=== PATIENT | female | born 1960 | race Caucasian/White ===

== ENCOUNTER 2016-12-29 19:29 | Emergency (ER) | payer OTHER ==
[2016-12-29 19:32] VITALS: BP 123/86
== END 2016-12-29 20:13 | disposition home or self-care (01) ==
LOC: ED 19:29
DX: S01.81XD Laceration without foreign body of other part of head, subsequent encounter (principal); X58.XXXD Exposure to other specified factors, subsequent encounter; Y92.89 Other specified places as the place of occurrence of the external cause; Y99.8 Other external cause status

== ENCOUNTER 2017-10-02 10:54 | Emergency (ER) | payer SELFPAY ==
[~2017-10-02] VITALS: Ht 162.6 cm; Wt 47.2 kg
[2017-10-02 11:14] VITALS: Ht 162.6 cm; Wt 47.2 kg
[2017-10-02 12:40] VITALS: BP 144/63
== END 2017-10-02 12:40 | disposition home or self-care (01) ==
LOC: ED 10:54
DX: N39.0 Urinary tract infection, site not specified (principal); I10 Essential (primary) hypertension; E11.9 Type 2 diabetes mellitus without complications; J45.909 Unspecified asthma, uncomplicated; Z90.710 Acquired absence of both cervix and uterus

== ENCOUNTER 2018-03-06 11:08 | Emergency (ER) | payer MEDICAID ==
[~2018-03-06] VITALS: Ht 162.6 cm; Wt 49.4 kg
[2018-03-06 11:17] VITALS: Ht 162.6 cm; Wt 49.4 kg
[2018-03-06 13:25] VITALS: BP 139/93
== END 2018-03-06 13:34 | disposition home or self-care (01) ==
LOC: ED 11:08
DX: S62.102A Fracture of unspecified carpal bone, left wrist, initial encounter for closed fracture (principal); Z90.710 Acquired absence of both cervix and uterus; W19.XXXA Unspecified fall, initial encounter; Y93.89 Activity, other specified; Y92.89 Other specified places as the place of occurrence of the external cause; Y99.8 Other external cause status
CPT/HCPCS: A4570

== ENCOUNTER 2018-03-22 17:54 | Emergency (ER) | payer MEDICAID ==
[~2018-03-22] VITALS: Ht 162.6 cm; Wt 63.5 kg
[2018-03-22 18:00] VITALS: Ht 162.6 cm; Wt 63.5 kg
[2018-03-22 19:46] VITALS: BP 144/96
== END 2018-03-22 19:40 | disposition left against medical advice (07) ==
LOC: ED 17:54
DX: S52.502A Unspecified fracture of the lower end of left radius, initial encounter for closed fracture (principal); Z90.710 Acquired absence of both cervix and uterus; X58.XXXA Exposure to other specified factors, initial encounter; Y93.89 Activity, other specified; Y92.89 Other specified places as the place of occurrence of the external cause; Y99.8 Other external cause status
CPT/HCPCS: Q0092

== ENCOUNTER 2018-07-23 11:49 | Emergency (ER) | payer OTHER ==
[~2018-07-23] VITALS: Ht 160 cm; Wt 54.4 kg
[2018-07-23 11:51] VITALS: BP 136/68; Ht 160 cm; Wt 54.4 kg
== END 2018-07-23 12:42 | disposition left against medical advice (07) ==
LOC: ED
DX: Z53.21 Procedure and treatment not carried out due to patient leaving prior to being seen by health care provider (principal)

== ENCOUNTER 2018-12-17 18:52 | Emergency (ER) | payer OTHER ==
[~2018-12-17] VITALS: Ht 160 cm; Wt 48.5 kg
[2018-12-17 19:39] VITALS: Ht 160 cm; Wt 48.5 kg
[2018-12-17 21:02] LABS: BASOPHIL % 1.1 % (0-2); PLATELET COUNT 386 x10^3mcL (130-400)
[2018-12-17 21:03] LABS: RED CELL DISTRIBUTION WIDTH 14.6 % (11.5-14.5)
[2018-12-17 21:11] LABS: CALCIUM 8.7 mg/dL (8.5-10.1); CARBON DIOXIDE 29.2 mmol/L (21-32); CHLORIDE SERUM 103 mmol/L (98-107); CREATININE SERUM 0.7 mg/dL (0.6-1.0); GFR1 > 60 mL/min; GLUCOSE SERUM 102 mg/dL (74-106); SODIUM SERUM 140 mmol/L (136-145)
[2018-12-17 21:15] LABS: ALBUMIN 3.9 g/dL (3.4-5.0); ALKALINE PHOSPHATASE 86 U/L (46-116); ALT/SGPT 25 U/L (14-59); AST/SGOT 17 U/L (15-37); BILIRUBIN TOTAL 0.11 mg/dL (0.20-1.00); TOTAL PROTEIN, SERUM 7.9 g/dL (6.4-8.2)
[2018-12-17 21:54] LABS: AMPHETAMINE QUAL UR POSITIVE (See below)
[2018-12-17 22:15] VITALS: BP 129/86
== END 2018-12-17 22:15 | disposition home or self-care (01) ==
LOC: ED 18:52
PROVIDERS: Emergency Medicine
DX: F10.129 Alcohol abuse with intoxication, unspecified (principal); R53.1 Weakness; F41.9 Anxiety disorder, unspecified; F32.9 Major depressive disorder, single episode, unspecified; L29.9 Pruritus, unspecified
CPT/HCPCS: 36415; G0480; J7030

== ENCOUNTER 2019-02-20 21:15 | Emergency (ER) | payer OTHER ==
[~2019-02-20] VITALS: Ht 162.6 cm; Wt 56.7 kg
[2019-02-20 21:27] VITALS: Ht 162.6 cm; Wt 56.7 kg
[2019-02-20 22:00] LABS: BASOPHIL % 0.9 % (0-2); PLATELET COUNT 329 x10^3mcL (130-400)
[2019-02-20 22:21] LABS: FREE T4 0.81 ng/dL (0.76-1.46); T4(THYROXINE) 5.6 ug/dL (4.7-13.3)
[2019-02-20 22:44] LABS: CARBON DIOXIDE 22.2 mmol/L (21-32); CHLORIDE SERUM 113 mmol/L (98-107); CREATININE SERUM 0.7 mg/dL (0.6-1.0); GFR1 > 60 mL/min; GLUCOSE SERUM 94 mg/dL (74-106); POTASSIUM SERUM 3.7 mmol/L (3.5-5.1); SODIUM SERUM 150 mmol/L (136-145)
[2019-02-20 22:49] LABS: ALBUMIN 3.5 g/dL (3.4-5.0); ALKALINE PHOSPHATASE 75 U/L (46-116); ALT/SGPT 18 U/L (14-59); AST/SGOT 14 U/L (15-37); BILIRUBIN TOTAL 0.16 mg/dL (0.20-1.00); TOTAL PROTEIN, SERUM 7.3 g/dL (6.4-8.2)
[2019-02-20 22:53] LABS: T3 TOTAL 1.05 ng/mL
[2019-02-21 04:23] LABS: AMPHETAMINE QUAL UR POSITIVE (See below)
[2019-02-21 10:12] VITALS: BP 124/70
== END 2019-02-21 10:24 | disposition home or self-care (01) ==
LOC: ED 21:15
PROVIDERS: Emergency Medicine
DX: F10.129 Alcohol abuse with intoxication, unspecified (principal); N39.0 Urinary tract infection, site not specified; F15.10 Other stimulant abuse, uncomplicated; Z73.6 Limitation of activities due to disability
CPT/HCPCS: 84439; G0480; J7030

== ENCOUNTER 2019-02-28 11:49 | Emergency (ER) | payer OTHER ==
[~2019-02-28] VITALS: Ht 162.6 cm; Wt 49.0 kg
[2019-02-28 11:54] VITALS: BP 137/87; Ht 162.6 cm; Wt 49.0 kg
== END 2019-02-28 13:14 | disposition home or self-care (01) ==
LOC: ED 11:49
DX: S80.01XA Contusion of right knee, initial encounter (principal); F41.9 Anxiety disorder, unspecified; F32.9 Major depressive disorder, single episode, unspecified; Z90.710 Acquired absence of both cervix and uterus; W20.8XXA Other cause of strike by thrown, projected or falling object, initial encounter; Y93.89 Activity, other specified; Y92.89 Other specified places as the place of occurrence of the external cause; Y99.8 Other external cause status

== ENCOUNTER 2019-03-08 21:07 | Emergency (ER) | payer OTHER ==
[~2019-03-08] VITALS: Ht 175.3 cm; Wt 68.0 kg
[2019-03-08 21:17] VITALS: Ht 175.3 cm; Wt 68.0 kg
[2019-03-08 22:08] LABS: BASOPHIL % 0.6 % (0-2); PLATELET COUNT 392 x10^3mcL (130-400); RED CELL DISTRIBUTION WIDTH 13.5 % (11.5-14.5)
[2019-03-08 22:17] LABS: CALCIUM 9.2 mg/dL (8.5-10.1); CARBON DIOXIDE 30.4 mmol/L (21-32); CHLORIDE SERUM 106 mmol/L (98-107); CREATININE SERUM 0.6 mg/dL (0.6-1.0); GFR1 > 60 mL/min; GLUCOSE SERUM 98 mg/dL (74-106); POTASSIUM SERUM 3.4 mmol/L (3.5-5.1); SODIUM SERUM 145 mmol/L (136-145)
[2019-03-08 22:23] LABS: ALBUMIN 3.7 g/dL (3.4-5.0); ALKALINE PHOSPHATASE 81 U/L (46-116); ALT/SGPT 19 U/L (14-59); AST/SGOT 18 U/L (15-37); BILIRUBIN TOTAL 0.22 mg/dL (0.20-1.00); TOTAL PROTEIN, SERUM 7.6 g/dL (6.4-8.2)
[2019-03-09 06:34] VITALS: BP 127/82
== END 2019-03-09 06:34 | disposition home or self-care (01) ==
LOC: ED 21:07
PROVIDERS: Emergency Medicine
DX: F10.129 Alcohol abuse with intoxication, unspecified (principal); F10.10 Alcohol abuse, uncomplicated; F17.210 Nicotine dependence, cigarettes, uncomplicated; F32.9 Major depressive disorder, single episode, unspecified; Z90.710 Acquired absence of both cervix and uterus; Y90.8 Blood alcohol level of 240 mg/100 ml or more
CPT/HCPCS: 36415; G0480; J7030

== ENCOUNTER 2019-04-20 14:23 | Emergency (ER) | payer MEDICAID ==
[~2019-04-20] VITALS: Ht 162.6 cm; Wt 49.9 kg
[2019-04-20 14:24] VITALS: Ht 162.6 cm; Wt 49.9 kg
[2019-04-20 15:05] LABS: BASOPHIL % 0.4 % (0-2); PLATELET COUNT 353 x10^3mcL (130-400); RED CELL DISTRIBUTION WIDTH 13.6 % (11.5-14.5)
[2019-04-20 15:11] LABS: CARBON DIOXIDE 25.4 mmol/L (21-32); CHLORIDE SERUM 109 mmol/L (98-107); CREATININE SERUM 0.7 mg/dL (0.6-1.0); GFR1 > 60 mL/min; GLUCOSE SERUM 112 mg/dL (74-106); POTASSIUM SERUM 4.1 mmol/L (3.5-5.1); SODIUM SERUM 145 mmol/L (136-145)
[2019-04-20 15:18] LABS: ALBUMIN 3.6 g/dL (3.4-5.0); ALKALINE PHOSPHATASE 87 U/L (46-116); ALT/SGPT 19 U/L (14-59); AST/SGOT 17 U/L (15-37); BILIRUBIN TOTAL 0.17 mg/dL (0.20-1.00); TOTAL PROTEIN, SERUM 7.7 g/dL (6.4-8.2)
[2019-04-20 16:49] VITALS: BP 115/76
== END 2019-04-20 16:49 | disposition short-term general hospital (02) ==
LOC: ED 14:23
PROVIDERS: Emergency Medicine
DX: S72.401A Unspecified fracture of lower end of right femur, initial encounter for closed fracture (principal); F41.9 Anxiety disorder, unspecified; F32.9 Major depressive disorder, single episode, unspecified; Z90.710 Acquired absence of both cervix and uterus; Y04.0XXA Assault by unarmed brawl or fight, initial encounter; Y93.89 Activity, other specified; Y92.810 Car as the place of occurrence of the external cause; Y99.8 Other external cause status
CPT/HCPCS: 27510; J2270; J3490; J7030; Q0092

== ENCOUNTER 2019-11-08 09:36 | Emergency (ER) | payer OTHER ==
[~2019-11-08] VITALS: Ht 162.6 cm; Wt 48.1 kg
[2019-11-08 09:42] VITALS: BP 135/74; Ht 162.6 cm; Wt 48.1 kg
== END 2019-11-08 11:26 | disposition home or self-care (01) ==
LOC: ED 09:36
DX: M25.511 Pain in right shoulder (principal); Z90.710 Acquired absence of both cervix and uterus

== ENCOUNTER 2019-11-09 13:25 | Emergency (ER) | payer OTHER ==
[~2019-11-09] VITALS: Ht 162.6 cm; Wt 49.0 kg
[2019-11-09 13:29] VITALS: BP 145/71; Ht 162.6 cm; Wt 49.0 kg
== END 2019-11-09 15:05 | disposition home or self-care (01) ==
LOC: ED 13:25
DX: M25.511 Pain in right shoulder (principal); Z90.710 Acquired absence of both cervix and uterus; Z98.890 Other specified postprocedural states

== ENCOUNTER 2019-11-23 12:27 | Emergency (ER) | payer OTHER ==
[~2019-11-23] VITALS: Ht 162.6 cm; Wt 49.4 kg
[2019-11-23 12:33] VITALS: Ht 162.6 cm; Wt 49.4 kg
[2019-11-23 12:55] VITALS: BP 144/97
== END 2019-11-23 12:55 | disposition home or self-care (01) ==
LOC: ED 12:27
DX: M25.511 Pain in right shoulder (principal); Z13.89 Encounter for screening for other disorder

== ENCOUNTER 2019-12-27 10:49 | Emergency (ER) | payer OTHER ==
[~2019-12-27] VITALS: Ht 160 cm; Wt 47.6 kg
[2019-12-27 10:58] VITALS: Ht 160 cm; Wt 47.6 kg
[2019-12-27 11:20] VITALS: BP 128/86
== END 2019-12-27 11:20 | disposition home or self-care (01) ==
LOC: ED 10:49
DX: Z02.79 Encounter for issue of other medical certificate (principal); Z90.710 Acquired absence of both cervix and uterus; Z98.890 Other specified postprocedural states

== ENCOUNTER 2019-12-29 21:12 | Emergency (ER) | payer OTHER ==
[~2019-12-29] VITALS: Ht 170.2 cm; Wt 48.5 kg
[2019-12-29 21:22] VITALS: BP 107/49; Ht 170.2 cm; Wt 48.5 kg
== END 2019-12-29 21:33 | disposition left against medical advice (07) ==
LOC: ED 21:12
DX: Z53.21 Procedure and treatment not carried out due to patient leaving prior to being seen by health care provider (principal)

== ENCOUNTER 2019-12-31 06:44 | Emergency (ER) | payer OTHER ==
[~2019-12-31] VITALS: Ht 160 cm; Wt 47.6 kg
[2019-12-31 06:46] VITALS: Ht 160 cm; Wt 47.6 kg
[2019-12-31 07:37] LABS: BASOPHIL % 0.4 % (0-2); PLATELET COUNT 257 x10^3mcL (130-400)
[2019-12-31 07:44] LABS: CALCIUM 9.1 mg/dL (8.5-10.1); CHLORIDE SERUM 101 mmol/L (98-107); CREATININE SERUM 0.6 mg/dL (0.6-1.0); GFR1 > 60 mL/min; GLUCOSE SERUM 135 mg/dL (74-106); POTASSIUM SERUM 3.5 mmol/L (3.5-5.1); SODIUM SERUM 137 mmol/L (136-145)
[2019-12-31 07:50] LABS: ALBUMIN 3.7 g/dL (3.4-5.0); ALKALINE PHOSPHATASE 96 U/L (46-116); ALT/SGPT 23 U/L (14-59); AST/SGOT 32 U/L (15-37); BILIRUBIN TOTAL 0.49 mg/dL (0.20-1.00); TOTAL PROTEIN, SERUM 7.3 g/dL (6.4-8.2)
[2019-12-31 08:57] LABS: AMPHETAMINE QUAL UR POSITIVE (See below)
[2019-12-31 11:38] VITALS: BP 128/68
== END 2019-12-31 11:38 | disposition home or self-care (01) ==
LOC: ED 06:44
PROVIDERS: Emergency Medicine
DX: R07.89 Other chest pain (principal); F15.10 Other stimulant abuse, uncomplicated; F10.10 Alcohol abuse, uncomplicated; Z90.710 Acquired absence of both cervix and uterus
CPT/HCPCS: 82962; G0480; J7030; Q0092

== ENCOUNTER 2020-01-01 16:55 | Emergency (ER) | payer OTHER ==
[~2020-01-01] VITALS: Ht 160 cm; Wt 73.0 kg
[2020-01-01 17:03] VITALS: Ht 160 cm; Wt 73.0 kg
[2020-01-01 17:41] LABS: BASOPHIL % 0.4 % (0-2); PLATELET COUNT 264 x10^3mcL (130-400); RED CELL DISTRIBUTION WIDTH 14.1 % (11.5-14.5)
[2020-01-01 17:49] LABS: CALCIUM 8.8 mg/dL (8.5-10.1); CARBON DIOXIDE 28.2 mmol/L (21-32); CHLORIDE SERUM 105 mmol/L (98-107); CREATININE SERUM 0.6 mg/dL (0.6-1.0); GFR1 > 60 mL/min; GLUCOSE SERUM 88 mg/dL (74-106); POTASSIUM SERUM 3.5 mmol/L (3.5-5.1); SODIUM SERUM 141 mmol/L (136-145)
[2020-01-01 17:53] LABS: ALBUMIN 3.4 g/dL (3.4-5.0); ALKALINE PHOSPHATASE 83 U/L (46-116); ALT/SGPT 28 U/L (14-59); AST/SGOT 28 U/L (15-37); BILIRUBIN TOTAL 0.5 mg/dL (0.20-1.00)
[2020-01-01 18:10] LABS: T3 TOTAL 0.97 ng/mL
[2020-01-01 18:29] LABS: FREE THYROXINE INDEX 2.3 ug/dL (1.4-4.5); T4(THYROXINE) 7.3 ug/dL (4.7-13.3)
[2020-01-01 19:00] LABS: AMPHETAMINE QUAL UR NONE DETECTED (See below)
--- NOTE | 2020-01-02 03:05 | NUR ---
Received a call from Yajaira around 00:20 she was going to send intake paperwork for bed placement. Just received intake paperwork at 0300 after speaking with Yajaira. Information for possible bed placement has been sent to [facility]/ Mathew STONE/ Montana Ramirez/ Radha/ Judson Zaldivar/ Olivia Gil/ [facility]/ Brett Bourgeois Will keep facility updated with any information
[2020-01-02 19:33] VITALS: BP 130/88
== END 2020-01-02 19:33 ==
LOC: ED 16:55
PROVIDERS: Emergency Medicine
DX: R53.1 Weakness (principal)
CPT/HCPCS: 36415; 84439; G0480; Q0092

== ENCOUNTER 2020-01-17 21:48 | Emergency (ER) | payer OTHER ==
[~2020-01-17] VITALS: Ht 160 cm; Wt 48.5 kg
[2020-01-17 21:57] VITALS: Ht 160 cm; Wt 48.5 kg
[2020-01-17 22:28] LABS: CALCIUM 8.5 mg/dL (8.5-10.1); CARBON DIOXIDE 28.8 mmol/L (21-32); CHLORIDE SERUM 105 mmol/L (98-107); CREATININE SERUM 0.7 mg/dL (0.6-1.0); GFR1 > 60 mL/min; GLUCOSE SERUM 103 mg/dL (74-106); POTASSIUM SERUM 3.7 mmol/L (3.5-5.1); SODIUM SERUM 142 mmol/L (136-145)
[2020-01-17 22:34] LABS: ALKALINE PHOSPHATASE 86 U/L (46-116); ALT/SGPT 22 U/L (14-59); AST/SGOT 24 U/L (15-37); BILIRUBIN TOTAL 0.1 mg/dL (0.20-1.00); TOTAL PROTEIN, SERUM 6.9 g/dL (6.4-8.2)
[2020-01-17 22:39] LABS: ALBUMIN 3.3 g/dL (3.4-5.0)
[2020-01-17 22:48] LABS: BASOPHIL % 0.8 % (0-2); PLATELET COUNT 388 x10^3mcL (130-400); RED CELL DISTRIBUTION WIDTH 13.8 % (11.5-14.5)
[2020-01-17 23:11] LABS: microscopic required? YES; urine erythrocyte NEGATIVE (NEGATIVE)
[2020-01-17 23:21] LABS: AMPHETAMINE QUAL UR NONE DETECTED (See below)
[2020-01-18 11:24] VITALS: BP 114/74
== END 2020-01-18 11:24 | disposition home or self-care (01) ==
LOC: ED 21:48
PROVIDERS: Emergency Medicine
DX: R45.851 Suicidal ideations (principal); F10.20 Alcohol dependence, uncomplicated; Z90.710 Acquired absence of both cervix and uterus
CPT/HCPCS: 36415; G0480

== ENCOUNTER 2020-01-20 22:31 | Emergency (ER) | payer OTHER ==
[~2020-01-20] VITALS: Ht 160 cm; Wt 47.8 kg
[2020-01-20 22:38] VITALS: Ht 160 cm; Wt 47.8 kg
[2020-01-20 23:41] LABS: BASOPHIL % 0.4 % (0-2); PLATELET COUNT 314 x10^3mcL (130-400); RED CELL DISTRIBUTION WIDTH 14.8 % (11.5-14.5)
[2020-01-20 23:44] LABS: CALCIUM 8.9 mg/dL (8.5-10.1); CARBON DIOXIDE 24.8 mmol/L (21-32); CHLORIDE SERUM 101 mmol/L (98-107); CREATININE SERUM 0.9 mg/dL (0.6-1.0); GFR1 > 60 mL/min; GLUCOSE SERUM 81 mg/dL (74-106); POTASSIUM SERUM 3.9 mmol/L (3.5-5.1); SODIUM SERUM 141 mmol/L (136-145)
[2020-01-20 23:49] LABS: ALKALINE PHOSPHATASE 97 U/L (46-116); ALT/SGPT 24 U/L (14-59); AST/SGOT 27 U/L (15-37); BILIRUBIN TOTAL 0.5 mg/dL (0.20-1.00); MAGNESIUM 2.2 mg/dL (1.8-2.4); TOTAL PROTEIN, SERUM 7.8 g/dL (6.4-8.2)
[2020-01-21 05:09] LABS: AMPHETAMINE QUAL UR POSITIVE (See below)
[2020-01-21 06:21] VITALS: BP 100/70
== END 2020-01-21 06:21 | disposition home or self-care (01) ==
LOC: ED 22:31
PROVIDERS: Emergency Medicine
DX: F10.129 Alcohol abuse with intoxication, unspecified (principal); F15.10 Other stimulant abuse, uncomplicated; N80.9 Endometriosis, unspecified; Z90.710 Acquired absence of both cervix and uterus
CPT/HCPCS: G0480; J3411; J3490; J7030

== ENCOUNTER 2020-02-25 10:29 | Emergency (ER) | payer OTHER ==
[~2020-02-25] VITALS: Ht 160 cm; Wt 48.1 kg
[2020-02-25 10:34] VITALS: Ht 160 cm; Wt 48.1 kg
[2020-02-25 11:50] VITALS: BP 128/85
== END 2020-02-25 11:58 | disposition home or self-care (01) ==
LOC: ED 10:29
DX: S49.91XA Unspecified injury of right shoulder and upper arm, initial encounter (principal); M54.2 Cervicalgia; Z90.710 Acquired absence of both cervix and uterus; Y04.0XXA Assault by unarmed brawl or fight, initial encounter; Y93.89 Activity, other specified; Y92.89 Other specified places as the place of occurrence of the external cause; Y99.8 Other external cause status

== ENCOUNTER 2020-03-08 15:34 | Emergency (ER) | payer OTHER ==
[~2020-03-08] VITALS: Ht 157.5 cm; Wt 54.4 kg
[2020-03-08 16:00] VITALS: BP 100/77; Ht 157.5 cm; Wt 54.4 kg
[2020-03-08 16:51] LABS: CALCIUM 8.5 mg/dL (8.5-10.1); CARBON DIOXIDE 29.6 mmol/L (21-32); CHLORIDE SERUM 107 mmol/L (98-107); CREATININE SERUM 0.8 mg/dL (0.6-1.0); GFR1 > 60 mL/min; GLUCOSE SERUM 92 mg/dL (74-106); POTASSIUM SERUM 3.5 mmol/L (3.5-5.1); SODIUM SERUM 145 mmol/L (136-145)
[2020-03-08 16:57] LABS: ALBUMIN 3.6 g/dL (3.4-5.0); ALKALINE PHOSPHATASE 97 U/L (46-116); ALT/SGPT 31 U/L (14-59); AST/SGOT 38 U/L (15-37); BILIRUBIN TOTAL 0.1 mg/dL (0.20-1.00); TOTAL PROTEIN, SERUM 7.5 g/dL (6.4-8.2)
[2020-03-08 17:00] LABS: BASOPHIL % 0.5 % (0-2); PLATELET COUNT 375 x10^3mcL (130-400); RED CELL DISTRIBUTION WIDTH 16.2 % (11.5-14.5)
== END 2020-03-08 19:12 | disposition left against medical advice (07) ==
LOC: ED 15:34
PROVIDERS: Emergency Medicine
DX: F10.129 Alcohol abuse with intoxication, unspecified (principal); F17.210 Nicotine dependence, cigarettes, uncomplicated; Z71.6 Tobacco abuse counseling
CPT/HCPCS: 36415; 99406; G0480

== ENCOUNTER 2020-03-14 19:19 | Emergency (ER) | payer OTHER | END 2020-03-14 20:40 | disposition other institution (70) | LOC: ED 19:19 | DX: Z02.89 Encounter for other administrative examinations (principal) ==

== ENCOUNTER 2020-03-14 19:19 | Emergency (ER) | payer OTHER ==
[~2020-03-14] VITALS: Ht 167.6 cm; Wt 54.4 kg
[2020-03-14 19:27] VITALS: Ht 167.6 cm; Wt 54.4 kg
[2020-03-14 20:39] VITALS: BP 117/79
== END 2020-03-14 20:40 | disposition other institution (70) ==
LOC: ED 19:19
DX: S50.811A Abrasion of right forearm, initial encounter (principal); F17.210 Nicotine dependence, cigarettes, uncomplicated; F10.20 Alcohol dependence, uncomplicated; F14.20 Cocaine dependence, uncomplicated; Z71.6 Tobacco abuse counseling; Z59.0 Homelessness; W25.XXXA Contact with sharp glass, initial encounter; Y93.89 Activity, other specified; Y92.89 Other specified places as the place of occurrence of the external cause; Y99.8 Other external cause status
CPT/HCPCS: 99406

== ENCOUNTER 2020-03-22 11:51 | Emergency (ER) | payer OTHER ==
[~2020-03-22] VITALS: Ht 160 cm; Wt 59.0 kg
[2020-03-22 12:07] VITALS: Ht 160 cm; Wt 59.0 kg
[2020-03-22 13:14] VITALS: BP 138/83
== END 2020-03-22 13:14 | disposition home or self-care (01) ==
LOC: ED 11:51
DX: L03.116 Cellulitis of left lower limb (principal); L03.115 Cellulitis of right lower limb; R03.0 Elevated blood-pressure reading, without diagnosis of hypertension; Z59.0 Homelessness; Z90.710 Acquired absence of both cervix and uterus

== ENCOUNTER 2020-04-21 07:28 | Emergency (ER) | payer OTHER ==
[~2020-04-21] VITALS: Ht 162.6 cm; Wt 48.1 kg
[2020-04-21 07:39] VITALS: BP 114/85; Ht 162.6 cm; Wt 48.1 kg
== END 2020-04-21 10:19 | disposition home or self-care (01) ==
LOC: ED 07:28
DX: S20.211A Contusion of right front wall of thorax, initial encounter (principal); F10.20 Alcohol dependence, uncomplicated; Z90.711 Acquired absence of uterus with remaining cervical stump; X58.XXXA Exposure to other specified factors, initial encounter; Y93.89 Activity, other specified; Y92.89 Other specified places as the place of occurrence of the external cause; Y99.8 Other external cause status

== ENCOUNTER 2020-04-26 14:43 | Emergency (ER) | payer OTHER ==
[~2020-04-26] VITALS: Ht 162.6 cm; Wt 47.2 kg
[2020-04-26 15:40] VITALS: Ht 162.6 cm; Wt 47.2 kg
[2020-04-26 15:41] LABS: BASOPHIL % 0.4 % (0-2); PLATELET COUNT 234 x10^3mcL (130-400); RED CELL DISTRIBUTION WIDTH 15.3 % (11.5-14.5)
[2020-04-26 15:55] LABS: CALCIUM 8.6 mg/dL (8.5-10.1); CARBON DIOXIDE 25.3 mmol/L (21-32); CHLORIDE SERUM 101 mmol/L (98-107); CREATININE SERUM 0.9 mg/dL (0.6-1.0); GFR1 > 60 mL/min; GLUCOSE SERUM 98 mg/dL (74-106); POTASSIUM SERUM 3.8 mmol/L (3.5-5.1); SODIUM SERUM 138 mmol/L (136-145)
[2020-04-26 16:02] LABS: ALBUMIN 3.9 g/dL (3.4-5.0); ALKALINE PHOSPHATASE 113 U/L (46-116); ALT/SGPT 37 U/L (14-59); AST/SGOT 51 U/L (15-37); BILIRUBIN DIRECT 0.11 mg/dL (0.0-0.2); BILIRUBIN TOTAL 0.43 mg/dL (0.20-1.00); LIPASE 117 IU/L (73-393); TOTAL PROTEIN, SERUM 8.4 g/dL (6.4-8.2)
[2020-04-26 17:06] VITALS: BP 145/90
== END 2020-04-26 17:06 | disposition home or self-care (01) ==
LOC: ED 14:43
PROVIDERS: Student in an Organized Health Care Education/Training Program
DX: E86.0 Dehydration (principal); T67.5XXA Heat exhaustion, unspecified, initial encounter; X58.XXXA Exposure to other specified factors, initial encounter; Y93.89 Activity, other specified; Y92.89 Other specified places as the place of occurrence of the external cause; Y99.8 Other external cause status
CPT/HCPCS: J7030